=== PATIENT | female | born 1995 | race Caucasian/White ===

== ENCOUNTER 2020-05-01 18:30 | Emergency (ER) | payer OTHER, SELFPAY ==
[2020-05-01 18:40] VITALS: BP 130/96; PULSE 82; RESP 16; TEMP 36.8; O2SAT 97; BMI 31.7
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
[2020-05-01] MEDS: IBUPROFEN 400 MG TABLET PO (19:32)
[2020-05-01] MEDS: ACETAMINOPHEN 325 MG TABLET PO (19:32)
[2020-05-01 21:14] VITALS: BP 140/81; PULSE 95; RESP 16; O2SAT 99
== END 2020-05-01 21:14 | disposition home or self-care (01) ==
PROVIDERS: Emergency Provider Emergency Medicine; Family Provider Physician Assistant; PCP Physician Assistant
DX: S80.01XA Contusion of right knee, initial encounter (principal); V89.2XXA Person injured in unspecified motor-vehicle accident, traffic, initial encounter
CPT/HCPCS: 73590; 99283

== ENCOUNTER → 2021-08-02 16:46 | Outpatient (CLI) | payer OTHER, MEDICAID, SELFPAY ==
[2021-08-02 18:37] LABS: Urine N gonorrhoeae NOT DETECTED
[2021-08-02 18:49] LABS: HIV 1 & 2 Ab/Ag 4th Gen Combo NEGATIVE (NEGATIVE)
[2021-08-02 19:08] LABS: Urine Chlamydia NOT DETECTED
== END ==
PROVIDERS: Family Provider Physician Assistant; Referring Provider Physician Assistant; Visit Provider Physician Assistant
DX: Z11.3 Encounter for screening for infections with a predominantly sexual mode of transmission (principal)
CPT/HCPCS: 36415; 87210; 87389; 87491; 87591

== ENCOUNTER → 2021-11-11 17:02 | Outpatient (CLI) | payer OTHER, MEDICAID, SELFPAY ==
[2021-11-16 16:07] LABS: Chlamydia trachomatis Negative (Negative); Mycoplasma genitalium Negative (Negative); Neisseria gonorrhoeae Negative (Negative)
== END ==
PROVIDERS: Family Provider Physician Assistant; PCP Family Medicine; Visit Provider Obstetrics & Gynecology
DX: Z20.2 Contact with and (suspected) exposure to infections with a predominantly sexual mode of transmission (principal)
CPT/HCPCS: 87491; 87563; 87591

== ENCOUNTER → 2022-09-25 13:32 | Outpatient (CLI) | payer OTHER, MEDICAID, SELFPAY ==
[2022-09-25 15:02] LABS: Influenza A - CEPHEID Flu A NEGATIVE (NEGATIVE); Influenza B - CEPHEID Flu B NEGATIVE (NEGATIVE); Respiratory Syncytial Virus Negative (Negative)
[2022-09-25 16:03] LABS: COVID-19 CEPHEID 4-PLEX PCR Negative (Negative)
== END ==
PROVIDERS: Family Provider Physician Assistant; PCP Family Medicine; Visit Provider Nurse Practitioner Family
DX: J02.9 Acute pharyngitis, unspecified (principal); R52 Pain, unspecified
CPT/HCPCS: 0241U; 87070; 87880

== ENCOUNTER → 2023-01-10 09:07 | Outpatient (CLI) | payer OTHER, MEDICAID, SELFPAY ==
[2023-01-10 09:56] LABS: Influenza A - CEPHEID Flu A NEGATIVE (NEGATIVE); Influenza B - CEPHEID Flu B NEGATIVE (NEGATIVE); Respiratory Syncytial Virus Negative (Negative)
[2023-01-10 09:58] LABS: COVID-19 CEPHEID 4-PLEX PCR Negative (Negative)
== END ==
PROVIDERS: Family Provider Physician Assistant; PCP Family Medicine; Visit Provider Physician Assistant
DX: J06.9 Acute upper respiratory infection, unspecified (principal)
CPT/HCPCS: 0241U; C9803